=== PATIENT | male | born 1995 | race Caucasian/White ===

== ENCOUNTER 2025-08-21 16:46 | Emergency (ER) | payer BC, SELFPAY ==
--- OUTSIDE RECORDS SUMMARY | 2025-08-21 16:52 | XMS_ITS | Clinical Summary ---
Author Organization 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) 10/19/2022 10/18/2024 Immunizations Immunization Administration Dates Next Due DTP 04/03/1994,1993,1993 ,1993 DTaP 06/30/2021,09/13/1997 Hep B, Adolescent or Pediatric 1993,1992,1993 HiB 1993,1993,1993 Influenza, Unspecified 10/18/2024(Deferr ed: Patient Refused),10/25/2023(Deferred: Patient Refused),10/19/2022(Deferred: Patient Refused),01/28/2022(Deferred: Patient Refused),10/21/2020(Deferred: Patient Refused),10/20/2019(Deferred: Patient Refused),08/29/2019(Deferred: Patient Refused),08/29/2018(Deferred: Patient Refused) MMR 09/13/1997,04/03/1994 OPV 09/13/1997,04/03/1994,1993 ,1993 Tdap 11/12/2021 Surgical History Surgery Date Site/Laterality Comments OTHER SURGICAL HISTORY Ganglioglioma: Removal OTHER SURGICAL HISTORY 01-Neurologist: Dr. 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 Monthly or less 10/25/2023 Q2: How many drinks containi ng alcohol do you have on a typical day when you are drinking? 1 or 2 10/25/2023 Q3: How often do you have si x or more drinks on one occasion? 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 Gender Identity Male 10/21/2020 2:18 PM TEAM ASSEMBLER Sexual Orientation Not on file Obstetrics History Last Filed Vital Signs Vital Sign Reading Time Taken Comments Blood Pressure 116/70 10/18/2024 8:55 AM TEAM ASSEMBLER Pulse 76 10/18/2024 8:55 AM TEAM ASSEMBLER Temperature 36.6 C (97.8 F) 10/18/2024 8:55 AM TEAM ASSEMBLER Respiratory Rate 16 10/18/2024 8:55 AM TEAM ASSEMBLER Oxygen Saturation 98% 10/18/2024 8:55 AM TEAM ASSEMBLER Inhaled Oxygen Concentration - - Weight 88.9 kg (196 lb) 10/18/2024 8:55 AM TEAM ASSEMBLER Height 180.3 cm (5' 11) 10/18/2024 8:55 AM TEAM ASSEMBLER Body Mass Index 27.34 10/18/2024 8:55 AM TEAM ASSEMBLER Plan of Treatment Health Maintenance Due Date Last Done Comments Hepatitis C Screening 1993 Varicella Vaccines (1 of 2 - 13+ 2-dose series) 2006 HPV Vaccines (1 - 3-dose SCDM series) 02/08/2020 Influenza Vaccine (#1) 2025 Depression Screening 10/18/2025 10/18/2024, 10/19/2022, 10/21/2020, Additional history exists Regular Well Visit/Exam 18-64 10/18/2025 10/18/2024, 10/25/2023, 10/19/2022, Additional history exists DTaP/Tdap/Td Vaccine (8 - Td or Tdap) 11/12/2031 11/12/2021, 06/30/2021, 09/13/1997, Additional history exists Hepatitis B Screening Completed 1993 , 1993, 1993 Pneumococcal vaccine <65 Aged Out No longer eligible based on patient's age to complete this topic Insurance Appy Couple [facility] BLUE ACCESS CHOICE [place] [employer] [place] CHO[place] Care Teams Qc Manager Relationship Specialty Start Date End Date Donald Trammell MD PCP - General Internal Medicine 10/28/17
[2025-08-21 16:53] VITALS: BP 131/77; PULSE 72; RESP 16; TEMP 36.4; O2SAT 100
--- NOTE | 2025-08-21 17:00 | ED.EYEPROB ---
HPI - Eye Problem General Chief complaint: Eye Problems Stated complaint: Right Eye Problem Time Seen by Provider: 08/21/25 17:00 Source: patient and RN notes reviewed Mode of arrival: ambulatory Limitations: no limitations History of Present Illness chief complaint: eye redness Related Data Allergies Allergy/AdvReac Type Severity Reaction Status Date / Time No Known Allergies Allergy Verified 08/21/25 16:56 Review of Systems Review of Systems: CONSTITUTIONAL: Denies malaise, chills, sweats, or fever. EYES: Denies visual changes. Reports redness, irritation, discharge. ENT: Denies rhinorrhea, congestion, sinus pain, otalgia or sore throat. SKIN: Denies rash or itching. NEUROLOGIC: Denies numbness, weakness, or headache. PSYCHIATRIC: Denies anxiety or depression. All systems reviewed & are unremarkable except as noted in HPI and below PMFSH Comments At time of signature, agree with nursing past medical, surgical, social and family history. There is no relevant family history pertinent to the presenting complaint Exam Narrative: GENERAL: Well-appearing, well-nourished, and in no acute distress. HEAD: Normocephalic, atraumatic. EYES: PERRLA, sclera clear, and EOMI. No nystagmus. Bilateral conjunctivae injected. Upper and lower eyelid unremarkable, no periorbital edema noted ENT: Nares clear, turbinates pink, no rhinorrhea or epistaxis. Mucous membranes moist. TM pearly bowers with sharp light reflex bilaterally; no tragal tenderness. NECK: Supple. CHEST: No respiratory distress. Speaks in full sentences. HEART: Regular rate and rhythm. SKIN: Warm, dry, no visible rash. NEURO: Alert and oriented x3. PSYCH: Normal mood and affect Course Course Emergency Course: Patient is aware of diagnosis, understands and agrees to treatment plan. Anticipatory guidance given. Patient agrees to follow-up as directed and is aware of reasons to seek care at the emergency department. Portions of this record may have been created with voice recognition software Level of Care: Express Care Visit Vital Signs Vital signs: Vital Signs Temperature 97.6 F 08/21/25 16:53 Pulse Rate 72 08/21/25 16:53 Respiratory Rate 16 08/21/25 16:53 Blood Pressure 131/77 08/21/25 16:53 Pulse Oximetry 100 08/21/25 16:53 Oxygen Delivery Room Air 08/21/25 16:53 Temperature 97.6 F 08/21/25 16:53 Pulse Rate 72 08/21/25 16:53 Respiratory Rate 16 08/21/25 16:53 Blood Pressure 131/77 08/21/25 16:53 Pulse Oximetry 100 08/21/25 16:53 Oxygen Delivery Room Air 08/21/25 16:53 Reviewed. Procedures FB Removal Eye Foreign Body #1: Foreign Body Removal Date: 08/21/25 Foreign Body Removal Time: 17:16 Time Out performed: Yes Location: eye (R) Topical anesthetic used: tetracaine Foreign body: other (debris) Evidence of corneal penetration: No Technique: cotton tip swab Procedure performed under: direct visualization with magnification Post-procedure medication: ophthalmic antibiotic Patient tolerated procedure: well Complications: other (pinpoint corneal abrasion) MDM - Eye Problem MDM Narrative Medical decision making narrative: Consideration of the following conditions may be warranted for the presenting problem, they are not final diagnoses: Bacterial conjunctivitis, allergic conjunctivitis, viral conjunctivitis, foreign body, blepharitis, chalazion, hordeolum, corneal abrasion, preseptal cellulitis, orbital cellulitis. No evidence of proptosis, ophthalmoplegia, vision loss, pain with eye movement. Exam findings show no acute concerns or changes; patient is non-toxic appearing and is in no distress. Patient is appropriate for outpatient treatment and follow-up. Critical Care Time Critical Care Time Critical Care Time: No Discharge Plan Discharge Clinical Impression: Foreign body in eye, Corneal abrasion Patient Disposition: Home Condition: Stable Instructions: How to Use Eye Drops (ED) Additional Instructions: Corneal abrasions will heal in 1-2 days. Keep your eye shut and wear sunglasses or stay in low light to avoid light sensitivity. Do not touch or rub your eye or use a fabric patch You may take Tylenol or ibuprofen for pain Follow-up with PCP or trailer sections assembler if condition is not improving in 2-3days. Patient Language: Bruneian Prescriptions: New polymyxin B sulf-trimethoprim 10,000 unit- 1 mg/mL drops 1 drp RIGHT EYE Q3H 7 Days Qty: 10 0RF Rx Instructions: while awake; do not exceed 6 doses in 24 hours Follow-up/Referrals: Jp,Donald Lucio MD [Primary Care Provider] Time of Disposition: 17:15
== END 2025-08-21 17:18 | disposition home or self-care (01) ==
PROVIDERS: Emergency Provider Nurse Practitioner; PCP Internal Medicine
DX: S05.01XA Injury of conjunctiva and corneal abrasion without foreign body, right eye, initial encounter (principal); X58.XXXA Exposure to other specified factors, initial encounter; T15.91XA Foreign body on external eye, part unspecified, right eye, initial encounter; W44.8XXA Other foreign body entering into or through a natural orifice, initial encounter
CPT/HCPCS: 65205; 99213; A9270; G0463